=== PATIENT | male | born 1960 | race Caucasian/White ===

== ENCOUNTER 2017-10-28 08:14 | Day surgery (SDC) | payer OTHER ==
[2017-10-28] VITALS (9 sets, daily range): BP systolic 115–141; BP diastolic 53–82; PULSE 70–80; TEMP 97.3–97.5
[~2017-10-28] VITALS: Ht 175.3 cm; Wt 103.3 kg
[2017-10-28] MEDS ORDERED: PRINIVIL5 MG PO (09:13)
[2017-10-28] MEDS ORDERED: GLUCOPHAGE1000 MG PO (09:14)
[2017-10-28] MEDS ORDERED: PRAVACHOL 20MG20 MG PO (09:14)
[2017-10-28] MEDS ORDERED: ASPIRIN E.C. 8181 MG PO (09:14)
[2017-10-28] MEDS ORDERED: VITAMIN E1000 U/CAP PO (09:15)
[2017-10-28] MEDS ORDERED: CENTRUM SILVER1 TA2 PO (09:15)
[2017-10-29] VITALS: BP 112/60; PULSE 80; TEMP 97.4
[2017-10-29 05:26] VITALS: BP 113/72; PULSE 79; TEMP 97.3
[2017-10-29 07:29] LABS: HEMATOCRIT 41.5 % (42.0-52.0); HEMOGLOBIN 13.9 g/dl (13.5-18.0)
[2017-10-29 07:35] VITALS: BP 112/68; PULSE 73; TEMP 97.5
[2017-10-29 07:40] LABS: CALCIUM 8.7 mg/dL (8.4-10.2); CREATININE, serum 0.98 mg/dL (0.66-1.25); POTASSIUM 4.3 mmol/L (3.4-5.0)
[2017-10-29 13:00] VITALS: BP 120/81; PULSE 80; TEMP 97.5
[2017-10-29 15:52] VITALS: BP 118/76; PULSE 73; TEMP 98.8
== END 2017-10-29 18:00 | disposition home or self-care (01) ==
LOC: SDCO 08:14 → SURG 18:15 → SDCO 10-29 18:00
PROVIDERS: Surgery
DX: K43.0 Incisional hernia with obstruction, without gangrene (principal); E11.9 Type 2 diabetes mellitus without complications; E78.5 Hyperlipidemia, unspecified; E23.0 Hypopituitarism; R91.8 Other nonspecific abnormal finding of lung field; I10 Essential (primary) hypertension; Z79.82 Long term (current) use of aspirin; Z79.84 Long term (current) use of oral hypoglycemic drugs; Z90.49 Acquired absence of other specified parts of digestive tract
CPT/HCPCS: OP; A4314; A9284; C1713; C1781; J0690; J1100; J1815; J1885; J2250; J2405; J2704; J2710; J3010; J7030